=== PATIENT | female | born 1945 | race Caucasian/White ===

== ENCOUNTER → 2016-10-15 | Outpatient (CLI) | payer MEDICARE, BC | END | disposition home or self-care (01) | LOC: PCVCCLINIC 15:26 | PROVIDERS: ATTEND Internal Medicine Cardiovascular Disease | DX: I82.402 Acute embolism and thrombosis of unspecified deep veins of left lower extremity (principal); M79.605 Pain in left leg; R55 Syncope and collapse; E78.5 Hyperlipidemia, unspecified; E11.9 Type 2 diabetes mellitus without complications; I10 Essential (primary) hypertension; G45.9 Transient cerebral ischemic attack, unspecified; R60.0 Localized edema | CPT/HCPCS: 80061; 93005; 93971; G0463 ==

== ENCOUNTER → 2017-04-30 | Outpatient (CLI) | payer MEDICARE, BC | END | disposition home or self-care (01) | LOC: PCVCCLINIC 10:56 | PROVIDERS: ATTEND Internal Medicine Cardiovascular Disease | DX: I82.532 Chronic embolism and thrombosis of left popliteal vein (principal); K92.1 Melena; E11.9 Type 2 diabetes mellitus without complications; E78.00 Pure hypercholesterolemia, unspecified; I10 Essential (primary) hypertension; I26.99 Other pulmonary embolism without acute cor pulmonale; Z90.49 Acquired absence of other specified parts of digestive tract; Z87.898 Personal history of other specified conditions; Z79.4 Long term (current) use of insulin; Z90.722 Acquired absence of ovaries, bilateral; Z79.899 Other long term (current) drug therapy; Z88.8 Allergy status to other drugs, medicaments and biological substances | CPT/HCPCS: 36415; 80061; 93005; G0463 ==

== ENCOUNTER → 2017-11-02 | Outpatient (CLI) | payer MEDICARE, BC | END | disposition home or self-care (01) | LOC: PCVCIMAG 13:17 | DX: M79.605 Pain in left leg (principal); M79.89 Other specified soft tissue disorders; I82.502 Chronic embolism and thrombosis of unspecified deep veins of left lower extremity; I10 Essential (primary) hypertension; E78.5 Hyperlipidemia, unspecified; E11.9 Type 2 diabetes mellitus without complications; Z86.711 Personal history of pulmonary embolism; Z79.4 Long term (current) use of insulin; Z79.899 Other long term (current) drug therapy | CPT/HCPCS: 80061; 93005; 93971; G0463 ==

== ENCOUNTER → 2018-03-08 | Outpatient (CLI) | payer MEDICARE, BC | END | disposition home or self-care (01) | LOC: PCVCCLINIC 13:16 | PROVIDERS: ATTEND Internal Medicine Cardiovascular Disease | DX: I10 Essential (primary) hypertension (principal); I26.99 Other pulmonary embolism without acute cor pulmonale; E78.00 Pure hypercholesterolemia, unspecified; G45.9 Transient cerebral ischemic attack, unspecified; E11.9 Type 2 diabetes mellitus without complications; I25.10 Atherosclerotic heart disease of native coronary artery without angina pectoris; Z79.4 Long term (current) use of insulin; Z88.8 Allergy status to other drugs, medicaments and biological substances; Z79.899 Other long term (current) drug therapy | CPT/HCPCS: 93005; G0463 ==

== ENCOUNTER → 2018-09-15 | Outpatient (CLI) | payer MEDICARE, BC | END | disposition home or self-care (01) | LOC: PCVCCLINIC 10:01 | PROVIDERS: ATTEND Internal Medicine Cardiovascular Disease | DX: I25.10 Atherosclerotic heart disease of native coronary artery without angina pectoris (principal); R07.9 Chest pain, unspecified; E11.9 Type 2 diabetes mellitus without complications; I26.99 Other pulmonary embolism without acute cor pulmonale; I10 Essential (primary) hypertension; G45.9 Transient cerebral ischemic attack, unspecified; I82.502 Chronic embolism and thrombosis of unspecified deep veins of left lower extremity; E78.00 Pure hypercholesterolemia, unspecified; R60.0 Localized edema; E78.2 Mixed hyperlipidemia; Z79.4 Long term (current) use of insulin; Z79.899 Other long term (current) drug therapy | CPT/HCPCS: 36415; 80061; 93005; G0463 ==

== ENCOUNTER → 2018-10-01 | Outpatient (CLI) | payer MEDICARE, BC ==
[~2018-10-01] MED LIST: REGADENOSON 0.4 MG/5 ML DISP.SYRIN. IV ONE
--- NOTE | 2018-10-01 12:52 | PCVCIMAG ---
APPROVED REPORT Study performed: 10/01/2018 08:11:19 EXAM: Comprehensive 2D, Doppler, and color-flow Echocardiogram Patient Location: Echo lab Status: routine BSA: 1.77 HR: 65 bpmBP: 142/72 mmHg Rhythm: NSR Other Information Study Quality: Adequate Indications Pulmonary Embolism Diabetes CAD Chest Pain 2D Dimensions IVSd: 9.01 (7-11mm) LVDd: 42.71 mm PWd: 7.75 (7-11mm)Ascending Ao: 32.34 (22-36mm) LVDs: 27.45 (25-40mm) Left Atrium: 38.57 (27-40mm) Aortic Root: 31.02 mm LV Single Plane 4CH: 62.06 % LV Single Plane 2CH: 55.64 % Biplane EF: 59.0 % Volumes Left Atrial Volume (Systole) Single Plane 4CH: 57.81 mLSingle Plane 2CH: 57.59 mL LA ESV Index: 32.00 mL/m2 Aortic Valve AoV Peak Armani.: 1.23 m/s AO Peak Gr.: 6.01 mmHgLVOT Max P.53 mmHg LVOT Max V: 0.94 m/s Mitral Valve E/A Ratio: 2.0 MV Decel. Time: 257.01 ms MV E Max Armani.: 0.82 m/s MV A Armani.: 0.40 m/s IVRT: 89.97 ms Pulmonary Valve PV Peak Armani.: 0.62 m/sPV Peak Gr.: 1.53 mmHg Pulmonary Vein P Vein S: 0.49 m/sP Vein A: 0.40 m/s P Vein D: 0.66 m/sP Vein A Dur.: 128.0 msec P Vein S/D Ratio: 0.74 Tricuspid Valve TR Peak Armani.: 2.92 m/s TR Peak Gr.: 33.60 mmHg Left Ventricle The left ventricle is normal size. There is normal LV segmental wall motion. There is normal left ventricular wall thickness. Left ventricular systolic function is normal. The left ventricular ejection fraction is within the normal range. LVEF is 55-60%. Grade II - pseudonormal filling dynamics. Right Ventricle Right ventricle is mildly dilated. The right ventricular systolic function is normal. Atria The left atrium size is normal. Right atrium is mildly dilated. Aortic Valve The aortic valve is normal in structure. No aortic regurgitation is present. There is no aortic valvular stenosis. Mitral Valve The mitral valve is normal in structure. Mild mitral regurgitation. No evidence of mitral valve stenosis. Tricuspid Valve The tricuspid valve is normal in structure. Mild tricuspid regurgitation with PAP of 41 mmHg. Pulmonic Valve The pulmonary valve is normal in structure. There is no pulmonic valvular regurgitation. Great Vessels The aortic root is normal in size. IVC is normal in size and collapses >50% with inspiration. Pericardium There is no pericardial effusion. There is no pleural effusion. <Conclusion> The left ventricle is normal size. LVEF is 55-60%. Grade II - pseudonormal filling dynamics. Right ventricle is mildly dilated. The left ventricle is normal size. LVEF is 55-60%. Grade II - pseudonormal filling dynamics. Right ventricle is mildly dilated. The aortic valve is normal in structure. Mild mitral regurgitation. Mild tricuspid regurgitation with PAP of 41 mmHg. The aortic root is normal in size. There is no pericardial effusion.
--- NOTE | 2018-10-02 10:40 | PCVCIMAG ---
APPROVED REPORT Imaging Protocol: Rest Tc-99m/Stress Tc-99m 1 day Study performed: 10/01/2018 08:54:53 Indication: CAD, Chest pain Patient Location: Out-Patient Stress Nurse: Kalli Mendez RN, Kelli Richard RN [place] Tech:Tyrese SeymourJASPAL Ht: 5 ft 4 in Wt: 159 lbs BSA: 1.77 m2 HR: 61 bpm BP: 143/89 mmHg BMI: 27.2 Rhythm: Normal Sinus Rhythm Medical History Medical History: Hyperlipidemia, HTN, CVD, Dm Insulin Medications: Carbidopa-Levodopa, Carvedilol, Gabapentin, Insulin, Victoza, Mirapex, Xarelto, Crestor, Valsartan Allergies: ASA, Keterolac, Sulfa, Demerol Pretest Chest Pain Characteristics: No chest pain Exercise History: Sedentary Physical Disabilities: Parkinsons Resting Data Rest SPECT myocardial perfusion imaging was performed in supine position 45 minutes following the intravenous injection of 11.2 mCi of Tc-99m Sestamibi. Time of rest injection: 0900 Date: 10/01/2018 Administration Route: IV Administration Site: Left Arm Pharmacologic Stress Pharmacologic stress test was performed by injecting Regadenoson 0.4 mg IV push over 10-15 seconds immediately followed by the intravenous injection of 36 mCi of Tc-99m Sestamibi. Time of stress injection: 1015 Date: 10/01/2018 Administration Route: IV Administration Site: Left Arm Gated Stress SPECT was performed 45 minutes after stress injection. The images were gated to evaluate regional wall motion and calculate left ventricular ejection fraction. Stress Test Details Stress Test: Pharmacologic stress testing performed using 0.4 mg of regadenoson per 5 mL given IV over 10 seconds. HRMax Heart Rate (APMHR): 146 bpm Resting HR: 61 bpmTarget HR (85% APMHR): 124 bpm Max HR Achieved: 81 bpm % of APMHR: 55 Recovery HR: 68 bpm BP Resting BP: 143/89 mmHg Max BP: 121/59 mmHg Recovery BP: 136/63 mmHg ECG Resting ECG: Sinus Rhythm Stress ECG: Sinus Rhythm Arrhythmia: None Recovery ECG: Sinus Rhythm Clinical Reason for Termination: Completed protocol Stress Symptoms: Dyspnea Exercise duration: min 55 sec Symptoms resolved with caffeine. Stress ECG Conclusion ECG: Non-ischemic Study Quality Study: Good Study Data Post stress, the left ventricular ejection was 93%.. SSS: 0 SRS: 2 SDS: 0 TID = 1.15. Perfusion No evidence of stress induced ischemia or prior myocardial infarction. Wall Motion Normal left ventricular size and function with no regional wall motion abnormalities. Nuclear Conclusion No evidence of stress induced ischemia or prior myocardial infarction. Normal left ventricular size and function with no regional wall motion abnormalities. Post stress, the left ventricular ejection was 93%. No change since prior study dated February 2016. Interpreted by: Jean Claude Sabillon MD Electronically Approved: 10/01/2018 14:19:59 <Conclusion> ECG: Non-ischemic
== END | disposition home or self-care (01) ==
LOC: PCVCIMAG 08:23
PROVIDERS: ATTEND Internal Medicine Cardiovascular Disease
DX: I08.1 Rheumatic disorders of both mitral and tricuspid valves (principal); I25.10 Atherosclerotic heart disease of native coronary artery without angina pectoris; E11.9 Type 2 diabetes mellitus without complications; I26.99 Other pulmonary embolism without acute cor pulmonale
CPT/HCPCS: 78452; 93017; 93306; A9500; J2785

== ENCOUNTER → 2019-04-06 | Outpatient (CLI) | payer MEDICARE, BC ==
--- NOTE | 2019-04-07 15:24 | PCVCIMAG ---
APPROVED REPORT Imaging Protocol: Rest Tc-99m/Stress Tc-99m 1 day Study performed: 04/06/2019 14:43:55 Indication: CAD , Chest pain, Congestive Heart Failure Patient Location: Out-Patient Stress Nurse: Kalli Mendez RN [place] Tech:Zenobia Ortega [facility] Ht: 5 ft 4 in Wt: 169 lbs BSA: 1.82 m2 HR: 74 bpm BP: 147/63 mmHg BMI: 29.0 Rhythm: Sinus Rhythm, T wave abnormalities Medical History Medical History: Hyperlipidemia, HTN, CVD, Diabetes Medications: Carvedilol, Insulin, Xarelto Cestor, Diovan, Gabapentin, Zanaflex, Mirapex, Carbidopa Allergies: Ketorolax, Sulfa, Demerol, ASA Cardiac Risk Factors: Age Previous Cardiac Procedures: 2016 Cath - Mild to moderate disease Pretest Chest Pain Characteristics: No chest pain Exercise History: Sedentary Physical Disabilities: Parkinsons Meds Held (24 hrs): Carvedilol Resting Data Rest SPECT myocardial perfusion imaging was performed in supine position 45 minutes following the intravenous injection of 9.8 mCi of Tc-99m Sestamibi. Time of rest injection: 1400 Date: 04/06/2019 Administration Route: IV Administration Site: Left AC Pharmacologic Stress Pharmacologic stress test was performed by injecting Regadenoson 0.4 mg IV push over 10-15 seconds immediately followed by the intravenous injection of 29.7 mCi of 1520 Time of stress injection: 1520 Date: 04/06/2019 Administration Route: IV Administration Site: Left AC Gated Stress SPECT was performed 45 minutes after stress injection. The images were gated to evaluate regional wall motion and calculate left ventricular ejection fraction. Stress Test Details Stress Test: Pharmacologic stress testing performed using 0.4 mg of regadenoson per 5 mL given IV over 10 seconds. Reason for pharmacologic stress test: physical limitation, Odilia has Parkinson's. HRMax Heart Rate (APMHR): 145 bpm Resting HR: 74 bpmTarget HR (85% APMHR): 123 bpm Max HR Achieved: 93 bpm % of APMHR: 64 Recovery HR: 83 bpm BP Resting BP: 147/63 mmHg Max BP: 140/75 mmHg Recovery BP: 137/63 mmHg ECG Resting ECG: Sinus Rhythm, T wave abnormalities Stress ECG: Sinus Rhythm, T wave abnormalities Arrhythmia: VPC's Recovery ECG: Sinus Rhythm, T wave abnormalities Clinical Reason for Termination: Completed protocol Stress Symptoms: Dyspnea, Lightheaded Symptoms resolved with caffeine. Stress ECG Conclusion ECG: Non-ischemic Study Data Post stress, the left ventricular ejection was 75%.. SSS: 1 SRS: 0 SDS: 1 TID = 1.17. Perfusion No evidence of stress induced ischemia or prior myocardial infarction. Wall Motion Normal left ventricular size and function with no regional wall motion abnormalities. Nuclear Conclusion No evidence of stress induced ischemia or prior myocardial infarction. Normal left ventricular size and function with no regional wall motion abnormalities. Post stress, the left ventricular ejection was 75%. No change since prior study dated February 2016. Interpreted by: Jean Claude Sabillon MD Electronically Approved: 04/06/2019 17:13:14 <Conclusion> ECG: Non-ischemic
== END | disposition home or self-care (01) ==
LOC: PCVCIMAG 12:46
PROVIDERS: ATTEND Internal Medicine Cardiovascular Disease
DX: I25.10 Atherosclerotic heart disease of native coronary artery without angina pectoris (principal); I11.0 Hypertensive heart disease with heart failure; I50.9 Heart failure, unspecified; Z88.8 Allergy status to other drugs, medicaments and biological substances; Z88.2 Allergy status to sulfonamides
CPT/HCPCS: 78452; 93017; A9500; J2785